=== PATIENT | male | born 1995 | race Caucasian/White ===

== ENCOUNTER → 2018-05-08 12:31 | Outpatient (CLI) | payer OTHER, SELFPAY ==
[2018-04-01 15:26] VITALS: BMI 23.7
--- NOTE | 2018-05-08 12:32 | STE_ITS ---
Reason For Study: Chest Pain Stress Results Protocol: Stress Echocardiogram Maximum Predicted HR: 200 bpm Target HR: 170 bpm % Maximum Predicted HR: 97 % DurationHeart Rate Stage (mm:ss) (bpm) BP BASELINE 59 118/74 JOHNSON PROTOCOL- STAGE 1 3:00 95 96/68 JOHNSON PROTOCOL- STAGE 2 3:00 115 114/70 JOHNSON PROTOCOL- STAGE 3 3:00 142 112/64 JOHNSON PROTOCOL- STAGE 4 3:00 171 110/64 JOHNSON PROTOCOL- STAGE 5 3:00 190 130/70 JOHNSON PROTOCOL- STAGE 6 1:02 193 / RECOVERY 94 138/80 Stress Duration: 16:02 mm:ss Maximum Stress HR: 193 bpm Baseline Echocardiogram Findings Stress Echo Wall motion Data Resting WM Intermediate WM Stress WM Resting Wall Motion Wall Motion Stress No regional wall motion No regional wall motion abnormalities noted. abnormalities noted. Ejection Fraction 55 %. Ejection Fraction 65 %. Interpretation Summary Exercise stress echo. Stress protocol: Resting EKG demonstrates normal sinus rhythm with a rate of 65 bpm normal intervals are noted. Resting blood pressure was 118/74 mmHg. The patient exercised according to regular Johnson protocol for total duration of 16 minutes completing 1 minute into stage of the Johnson protocol for maximum heart rate attained was 196 bpm which was 98% of the maximum predicted heart rate the maximum workload was 20.3 metabolic equivalents. At rest there were no ST or T wave changes noted suggest ischemia and a peak exercise upsloping ST changes only were noted we did not meet the criteria for ischemia. The resting blood pressure was 118/74 with a peak blood pressure of 138/80 mmHg. Rate pressure product was 25,000. No clinical angina was noted the test was terminated due to leg fatigue. Resting echocardiogram. The resting echocardiogram demonstrated preserved ejection fraction of 55% with no wall motion of normality is present. Stress echocardiogram: The stress echocardiographic images demonstrated thickening of all ley with reduction in left ventricular cavity size and peaking of ejection fraction of 65%. No wall motion abnormalities were noted to suggest ischemia. Conclusion: Normal stress echocardiogram with no evidence of ischemia noted at a high workload. Excellent functional capacity. No arrhythmias noted. Ordering Physician: Reyes Smith Referring Physician: Reyes Smith Performed By: Lima Bean, RDYOBANY, RVT
--- NOTE | 2018-05-08 16:57 | STRESSREP ---
Stress Test Report Exercise stress test. Stress protocol: Resting EKG demonstrates normal sinus rhythm with a rate of 65 bpm normal intervals are noted. Resting blood pressure 118/74 mmHg. The patient exercised according to regular Johnson protocol for total duration of 16 minutes completing 1 minute into stage of the Johnson protocol the maximum heart rate attained was 196 bpm which was 98% of maximum predicted heart rate the maximum workload was 20.3 metabolic equivalents. At rest there were no ST or T wave changes noted to suggest ischemia at peak exercise upsloping ST changes only were noted. No clinical angina was noted. The resting blood pressure 118/74 in stage I was 96/68 mmHg the peak blood pressure 138/80 mmHg. Rate pressure product was 25,090. No clinical angina was noted. Conclusion: Exercise stress test with no evidence of ischemia at a high workload and no arrhythmias noted. Excellent functional capacity. No angina present.
--- OUTSIDE RECORDS SUMMARY | 2018-07-13 02:20 | XMS RPT_ITS ---
:1995 Author Organization [facility] Care Team Providers Name Role Phone Reyes Smith Attending Unavailable DOCTOR, OUT OF TOWN Referring Unavailable Reyes Smith Attending Unavailable Reyes Smith Referring Unavailable ERIC SCOTT Primary Care Unavailable PROBLEMS PROBLEMS DATE TYPE CONDITION / CODE ATTENDING STATUS SOURCE 04/01/2018 Unknown R06.09 - Other Luis, [place] Active Ward forms of dyspnea [facility] / R06.09(ICD-10) Hospital Repository 04/01/2018 Unknown R07.9 - Chest Luis, [place] Active Ern[place] pain, unspecified [facility] / R07.9(ICD-10) Hospital Repository PROCEDURES PROCEDURES No Procedure Records FoundRESULTS RESULTS STRESS REPORT Observed: 05/08/2018 Status: F Source: [place] 4:58 PM [facility] Cardiovascular Services [address] [place] [address] MR#: [id number] Acct: [id number] Name: TARIQ MESSER Rep #: [id number] : 1995 22 From: Reyes Smith MD Primary Care: OUT OF TOWN DOCTOR Status: REG CLI Ordering Dr: Sex: M C Stress Test Report Exercise stress test. Stress protocol: Resting EKG demonstrates normal sinus rhythm with a rate of 65 bpm normal intervals are noted. Resting blood pressure 118/74 mmHg. The patient exercised according to regular Johnson protocol for total duration of 16 minutes completing 1 minute into stage of the Johnson protocol the maximum heart rate attained was 196 bpm which was 98% of maximum predicted heart rate the maximum workload was 20.3 metabolic equivalents. At rest there were no ST or T wave changes noted to suggest ischemia at peak exercise upsloping ST changes only were noted. No clinical angina was noted. The resting blood pressure 118/74 in stage I was 96/68 mmHg the peak blood pressure 138/80 mmHg. Rate pressure product was 25,090. No clinical angina was noted. Conclusion: Exercise stress test with no evidence of ischemia at a high workload and no arrhythmias noted. Excellent functional capacity. No angina present. 05/08/181657 <Electronically signed by Reyes Smith MD> Date Reyes Smith MD CC: Reyes Smith MD; OUT OF TOWN DOCTOR Date Dictated: 05/08/181656 Date Transcribed: 05/08/181656 Braid Folder: CO Signed CARDIOLOGY VISIT Observed: 04/01/2018 Status: F Source: [place] REPORT 4:17 PM [facility] [address] [place] [address] OFFICE VISIT Date of Service: 04/01/18 MR#: [id number] Acct: [id number] Name: TARIQ MESSER Rep #: [id number] : 1995 Provider: Reyes Smith MD Age/Sex: 22/M Location: [facility] [place] Status: Signed HPI HPI Chief Complaint: Initial visit Details: TARIQ MESSER, is a 22 M who presents to the office today for an initial evaluation. 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 It is sometimes a tightness associated with some shortness of breath. He says that this occurs at the level lower than what he has been used to. He denies any dizziness or diaphoresis no near syncope or syncope he is on no medications. His physical exam today demonstrates clear lung chen regular rate and rhythm and no pedal edema his electrocardiogram demonstrates normal sinus rhythm with a rate of 61 bpm and no acute changes noted. 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 Allergies No Known Allergies Allergy (Unverified 04/01/18 15:26) Medications lisdexamfetamine 50 mg capsule PO 60 Days #60 cap 04/01/18 [History Confirmed 04/01/18] [facility] Medical History ADHD (Chronic) Exercise-induced asthma (Suspected) Major contusion of spleen (Resolved) Syncope (Resolved) Surgical History H/O wisdom tooth extraction (Resolved) Family History Brother Heart disease Heart murmur Grandfather Heart disease valve replaced in his 80's Social History Smoking Status: Never smoker caffeine: Yes Type: coffee ROS Const Const: Positive for other (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 ); negative for fatigue, weakness, difficulty sleeping, frequent falls, excessive sweating or headache(s) Eyes Eyes: Negative for loss of peripheral vision, transient loss of vision, blurry vision, tunnel vision or double vision ENT ENT: Negative for headache(s), dizziness, Nosebleed/epistaxis or balance problems Cardio Chest Pain: Yes Frequency: monthly Character: tightness, other Onset: exercise, other (when heart rate > 180) Palpitations: No Edema: None Muscle aches with walking: None Resp Respiratory: Negative for SOB with activity, SOB at rest, SOB orthopnea\SOB lying down, paroxysmal nocturnal dyspnea or Cough GI GI: Negative nausea, heartburn, black,tarry stools or vomiting : Negative for hematuria Musc Musc: Negative for balance problems, muscle aches/ myalgia, muscle weakness or joint pain Skin Skin: Negative non-healing lesions, unusual bruising or rash Neuro Neuro: Negative for weakness, frequent falls, headache(s), blurry vision, double vision, dizziness, lightheadedness, orthostatic symptoms, near syncope, syncope (3 years ago after a workout) or lack of coordination Martí[place] Hematologic/Lymphatic: Negative for easy bruising or easy bleeding Endo Endo: Negative for fatigue, excessive sweating or increased thirst/drinking Psych Psych: Negative for anxiety or depression Allergy Allergy/Immunology: Negative for hives, Negative for rash Cardiology Exam Const Appearance: cooperative, healthy appearing, well developed, well groomed and no acute distress Nutritional Appearance: well nourished and average body habitus Orientation: alert, awake and oriented x3 Head Head: normal to inspection, normocephalic and atraumatic Ears: hearing grossly normal bilaterally and external ears normal Nose: external nose normal, nasal mucous membranes and turbinates normal, nares normal, septum normal, no nasal discharge Face and Sinus: face symmetric Mouth: oral mucosae normal, tongue normal, oropharynx normal and moist mucous membranes Teeth and gingiva: dentition normal Throat: posterior oropharynx normal, tonsils normal and uvula midline Eyes General: appearance normal, both eyes and all related structures Eyelids: eyelids normal Conjunctivae: conjunctivae normal Pupils: PERRL, normal by confrontation and accommodation normal EOM: EOM intact bilaterally Neck Neck: normal visual inspection, trachea midline and no JVD JVD: +5 Carotids: normal carotid upstroke and bounding pulses Chest Chest inspection: normal inspection of the chest, symmetric chest movement and normal respiratory effort Auscultation: Bilateral: Clear to Auscultation Cardio Palpation: normal PMI Rate: regular rate Rhythm: regular rhythm Heart sounds: S1 normal, S2 normal and normal, physiologic split S2; negative rub, gallop or murmur GI GI: normal to inspection, soft, no hepatosplenomegaly and bowel sounds present Neuro General: alert, awake, oriented x3, no focal sensory deficit, gait normal and moves all extremities Skin Skin: no rashes or lesions noted Extremities Pulses: Normal: Right Femoral Pulse, Left Femoral Pulse, Right Dorsalis Pedis Pulse, Left Dorsalis Pedis Pulse, Right Posterior Tibial Pulse, Left Posterior Tibial Pulse, Right Radial Pulse, Left Radial Pulse Lower Extremity Edema: None: Bilateral Musculoskel Musculoskeletal: No joint tenderness Psych Psychological: normal affect Assessment AND Plan 1. Chest pain R07.9 Plan He does have some chest discomfort which appears to have some atypical patent. I suspect that the above is likely inflammatory and not obstructive coronary. I would however like us to obtain a stress echocardiogram to exclude mitral valve prolapse and also see his exercise capacity. He tells me that he is leaving town in the a.m. and would back in a month and we will schedule this when he gets back. Thank you for allowing me to participate in the care of your patient. Please don't hesitate to call if any issues arise Orders Orders: 2. Dyspnea on exertion R06.09 Orders Orders: Coding Level of Care Code Off vis,new,level 3 Diagnoses Chest pain R07.9 Dyspnea on exertion R06.09 Coding Level of Care Code Off vis,new,level 3 Diagnoses Chest pain R07.9 Dyspnea on exertion R06.09 04/01/18 1617 <Electronically signed by Reyes Smith MD> Date Reyes Smith MD Cosigner Signature: Date (if applicable) CC: ivan nice 12 LEAD EKG PERFORMED Observed: 04/01/2018 Status: F Source: [place] [facility] [place] 3:38 PM [facility] [address] [address] 12 Lead EKG performed by [facility] [place] 04/01/181536 MR#: [id number] Acct: [id number] Name: TARIQ MESSER Rep #: [id number] : 1995 22 From: Reyes Smith MD Attending Dr: Reyes Smith MD Status: DEP AMB Ordering Dr: Reyes Smith MD Date: 04/01/18 Location: [facility] [place] Sex: M C Admitted: [facility] [place]/ Lead EKG performed by [facility] [place] ECG Report Interpretation Sinus Rhythm WITHIN NORMAL LIMITSElectronically signed on 05/12/2018 at 16:24 by Reyes Smith [employer] Version [id number] 05/12/18 1630 Date Reyes Smith MD CC: OUT OF TOWN DOCTOR Date Dictated: 04/01/181536 Date Transcribed: 04/01/181536 Braid Folder: CO Signed ALLERGIES ALLERGIES DATE TYPE / CODE NAME / CODE REACTION SEVERITY SOURCE 04/01/2018 Drug No Known Unknown Ward [facility] Allergy/4160 Allergies/F00 Hospital [address](SNOMED [id number](RXNOR Repository CT) M) ENCOUNTERS ENCOUNTERS ADMIT/DISCHARGE ACCOUNT ADMITTING ENCOUNTER LOCATION SOURCE NUMBER CLASS 05/08/2018 [id number] Ambulatory Ernestine Ernestine [address] [facility] ing:[facility] Repository 04/01/2018/ [id number] Ambulatory BMSBuilding:B Ward 8 0 [facility] Repository PAYERS PAYERS ENCOUNTER GUARANTOR PAYER SUBSCRIBER SOURCE 05/08/2018 TARIQ E Primary ANTHONY Ernestine [id number] [facility] SONDERLINGDOB: [address] Number: Repository [id number]: [phone] [id number] [phone] () Date:[id number] [address] [address]SI: 05/08/2018 Secondary NOT GIVENUNK Ward Insurance:SELF PAY [facility] Number: Effective Repository Date:2018-04-01 04/01/2018 ANTHONY Primary ANTHONY Ernestine [id number] [facility] [address] Number: Repository [id number]: [phone] [id number] [phone] () Date:[id number] [address] [address]JE: 04/01/2018 Secondary NOT GIVENUNK Ward Insurance:SELF PAY [facility] Number: Effective Repository Date:2018-03-20
== END ==
PROVIDERS: Referring Provider Internal Medicine Cardiovascular Disease; Visit Provider Internal Medicine Cardiovascular Disease
DX: R07.9 Chest pain, unspecified (principal)
CPT/HCPCS: 93017; 93350